=== PATIENT | female | born 1950 | race Caucasian/White ===

== ENCOUNTER 2016-03-08 16:26 | Emergency (ER) | payer MEDICARE | END 2016-03-08 19:54 | disposition home or self-care (01) | LOC: ER 16:26 | DX: M25.562 Pain in left knee (principal); G89.11 Acute pain due to trauma; M25.462 Effusion, left knee; X50.1XXA Overexertion from prolonged static or awkward postures, initial encounter; Y92.009 Unspecified place in unspecified non-institutional (private) residence as the place of occurrence of the external cause; F41.1 Generalized anxiety disorder; I10 Essential (primary) hypertension; Z79.899 Other long term (current) drug therapy ==